=== PATIENT | male | born 1960 | race Caucasian/White ===

== ENCOUNTER → 2020-12-21 | Outpatient (CLI) | payer MEDICARE, OTHER | LOC: CT 09:30 | DX: R06.02 Shortness of breath (principal); R04.2 Hemoptysis; I71.2 Thoracic aortic aneurysm, without rupture | CPT/HCPCS: 36415; 71250 ==

== ENCOUNTER → 2021-03-29 | Outpatient (CLI) | payer MEDICARE, OTHER | LOC: NM 14:28 | DX: I10 Essential (primary) hypertension (principal); R94.39 Abnormal result of other cardiovascular function study | CPT/HCPCS: 93017 ==